=== PATIENT | female | born 1960 ===

== ENCOUNTER 2025-03-13 14:14 | Outpatient (CLI) | payer MEDICARE, MEDICAID ==
--- NOTE | 2025-03-13 16:11 | RADIOLOGY REPORT ---
MRI CERVICAL SPINE CLINICAL HISTORY: OTHER IDIOPATHIC SCOLIOSIS LUMBAR REGION,SPINEAL STENOSIS CERVICAL REGION Comparison: None Technique: Multi planar, multi sequence MR images of the cervical spine without intravenous contrast. FINDINGS: The cervical spinal cord demonstrates normal caliber and signal. The visualized posterior fossa dylon nts appear unremarkable. The craniocervical junction is within normal limits. The vertebral body heig hts and bone marrow signal are appropriate. There is mild straightening of the cervical lordosis. The re is disc desiccation throughout. There is multilevel disc space narrowing, worst at C5-C6 and C6-C7 . At C2-C3 there is no significant disc herniation. There is no spinal canal or neuroforaminal stenosis . At C3-C4 there is disc bulge and mild bilateral uncovertebral arthropathy. There is no canal stenosis . There is mild bilateral neural foraminal stenosis. At C4-C5 there is posterior disc osteophyte complex and bilateral uncovertebral and left facet arthro florencio. There is mild spinal canal stenosis with effacement of the ventral thecal sac. There is modera te bilateral neural foraminal stenosis, [id number]. At C5-C6 there is posterior disc osteophyte complex bilateral uncovertebral arthropathy. There is no canal stenosis. There is moderate bilateral neural foraminal stenosis, [id number]. At C6-C7 there is posterior disc osteophyte complex and mild bilateral uncovertebral arthropathy. The re is no canal stenosis. There is mild bilateral neural foraminal stenosis. At C7-T1 there is minimal disc bulge without canal or foraminal stenosis. At T1-T2 there is a 3 mm central disc protrusion indenting the ventral thecal sac without canal or si gnificant foraminal stenosis. IMPRESSION: 1. Multilevel degenerative changes in the cervical spine as described by levels above. There is mild spinal canal stenosis at C4-C5. 2. Moderate bilateral neural foraminal stenosis at C4-C5 and C5-C6. HS:Y
--- NOTE | 2025-03-13 16:25 | RADIOLOGY REPORT ---
PROCEDURE: MR MRI LUMBAR SPINE INDICATION: OTHER IDIOPATHIC SCOTIOSIS LUMBAR REGION,SPINAL STENOSIS CERVICAL REGION Exam Date: 03/13/2025 02:53 PM COMPARISON: None TECHNIQUE: MRI lumbar spine without intravenous contrast. FINDINGS: Levoscoliosis. Grade 1 anterolisthesis of L4 on L5. Chronic superior endplate compression deformity o f L3. There are degenerative endplate changes including modic endplate changes with anterior and lat eral osteophytes throughout the lumbar spine. The visualized distal spinal cord and conus medullaris are within normal limits. The conus medullaris appears to terminate within normal limits. The visua lized retroperitoneal and paraspinal soft tissues are unremarkable. The following axial levels are detailed below: T12-L1: There is a mild circumferential disc bulge. No significant central canal or neuroforaminal s tenosis. L1-L2: Unremarkable. L2-L3: There is a moderate circumferential disc bulge complicated by facet arthropathy associated w ith mild to moderate bilateral neuroforaminal stenosis. Central canal measures 9 mm. L3-L4: There is a severe circumferential disc bulge complicated by facet arthropathy narrowing the central canal to 7 mm with associated moderate to severe bilateral neuroforaminal stenosis. L4-L5: There is a moderate circumferential disc bulge complicated by facet arthropathy associated w ith moderate bilateral neuroforaminal stenosis right greater than left. No significant central canal stenosis. L5-S1: There is a moderate circumferential disc bulge complicated by facet arthropathy associated wi th moderate bilateral neuroforaminal stenosis [id number]. No significant central canal stenosis. IMPRESSION: 1. Rotoscoliosis with associated multilevel degenerative disease. Severe central canal stenosis L3-4. Mild central canal stenosis L2-3. Neural foraminal stenosis as above. Chronic compression deformit y of L3. HS:Y
== END 2025-03-13 23:59 | disposition home or self-care (01) ==
LOC: MRI02 14:14
PROVIDERS: ATTEND Anesthesiology Pain Medicine
DX: M51.17 Intervertebral disc disorders with radiculopathy, lumbosacral region (principal); M41.26 Other idiopathic scoliosis, lumbar region; M48.02 Spinal stenosis, cervical region; M47.816 Spondylosis without myelopathy or radiculopathy, lumbar region; M51.24 Other intervertebral disc displacement, thoracic region; M43.16 Spondylolisthesis, lumbar region; M41.86 Other forms of scoliosis, lumbar region; M43.8X6 Other specified deforming dorsopathies, lumbar region; M47.27 Other spondylosis with radiculopathy, lumbosacral region; M48.07 Spinal stenosis, lumbosacral region
CPT/HCPCS: 72141; 72148